=== PATIENT | male | born 1990 | race Caucasian/White ===

== ENCOUNTER 2017-08-18 21:15 | Emergency (ER) | payer OTHER ==
[~2017-08-18] VITALS: Ht 175.3 cm; Wt 63.5 kg
[~2017-08-18 21:15] MED LIST: AMPH10TA4 PO
--- NOTE | 2017-08-18 21:20 | NUR ---
NGUYEN LEGER FOR "FEELING ANXIOUS" S/P STEALING FROM [facility]ALL. NAD NOTED. VSS. SEEN BY PD FOR EVAL. SAFETY AND COMFORT MEASURES PROVIDED. [employer] REMAINS AT BS.
--- NOTE | 2017-08-18 21:53 | NUR ---
Patient discharged in a stable condition. OKAY TO BOOK. Written and verbal after care instructions given. Patient verbalizes understanding of instruction.
[2017-08-18 21:56] VITALS: BP 121/81
== END 2017-08-18 21:56 ==
LOC: ER 21:17
DX: Z02.89 Encounter for other administrative examinations (principal); S00.81XA Abrasion of other part of head, initial encounter; F41.9 Anxiety disorder, unspecified; L01.00 Impetigo, unspecified; F90.9 Attention-deficit hyperactivity disorder, unspecified type; W51.XXXA Accidental striking against or bumped into by another person, initial encounter; Y93.89 Activity, other specified; Y92.89 Other specified places as the place of occurrence of the external cause; Y99.8 Other external cause status
CPT/HCPCS: 99284; A4606; Z7610